=== PATIENT | female | born 1995 | race Hispanic/Latino ===

== ENCOUNTER 2021-12-15 10:23 | Emergency (ER) | payer SELFPAY ==
--- OUTSIDE RECORDS SUMMARY | 2021-12-15 10:27 | XMS REPORT | Continuity of Care Document ---
:1995 Author Organization [facility] Address [address] [place] [address] Care Team Providers Name Role Phone ZO ESTRADA Attending Clinician Unavailable Laura Holbrook Attending Clinician Doctor Unassigned, Name Attending Clinician Unavailable Payers Payer Name Policy Type Policy Number Effective Date Expiration Date Steve woodruff [employer] [id number] 2020 CATHY [phone]% 00:00:00 Advance Directives Directive Decision Effective Termination Comments Source Date Date Healthcare Agents on N/A Univ ersity FileNameRelationshipHealthcare [facility] Agent Medical RelationshipCommunicationMaicreni Branch PatlanParentHealth Care [phone] (Home)[facility] Partner[facility] [phone] (Mobile) Problems Condition Condition Condition Status Onset Resolution Last Treating Co mments Source Name Details Category Date Date Treatment Clinician Date BV BV Disease Active Univers (bacterial (bacterial 2-26 it y of vaginosis) [place]in[place] [facility] Pain Pain Disease Active Univers pelvic pelvic 1-24 ity of 00:00: [place] 00 Medical Branch Presence Presence Disease Active Unive rs of of 1-24 ity of intrauteri intrauteri [place] Medical contracept contracept Br anch jessica device jessica device Encounter Encounter Disease Active 2016-11 Uni vers for for 2-19 ity of contracept contracept [place] jessica jessica 00 Medical management management Br anch , , unspecifie unspecifie d type d type Allergies, Adverse Reactions, Alerts Allergy Allergy Status Severity Reaction(s) Onset Inactive Treating Comm ents Source Name Type Date Date Clinician NO KNOWN Drug Active Univers ALLERGIE Class ity of S [place] [facility] Social History Social Habit Start Date Stop Date Quantity Comments Source Exposure to Not sure [facility] SARS-CoV-2 [place] Medical (event) Branch Tobacco use and 2020-07-09 2020-07-09 Never used Universit y of exposure 00:00:00 00:00:00 [facility] Alcohol intake 2020-07-09 2020-07-09 Current University of 00:00:00 00:00:00 non-drinker of [facility] alcohol Branch (finding) Sex Ass[birth year] At [birth year] Universit y of 00:00:00 00:00:00 [facility] Smoking Status Start Date Stop Date Source Never smoker [facility] Medications Ordered Filled Start Stop Current Ordering Indication Dosage Frequency Signature Comments Components Source Medication Medication Date Date Medication? Clinician (SIG) Name Name metroNIDAZO 2019- Yes [id number] 500mg Take 1 Univers LE 500 mg 8-11 tablet by ity o f tablet 00:00: mouth 2 [place] ([facility]) Medical times Branch daily. metroNIDAZO 2019-0 Yes [id number] 500mg Take 1 Univers LE 500 mg 8-11 tablet by ity o f tablet 00:00: mouth 2 [place] (two) Medical times Branch daily. metroNIDAZO 2019-0 Yes [id number] 500mg Take 1 Univers LE 500 mg 8-11 tablet by ity o f tablet 00:00: mouth 2 [place] (two) Medical times Branch daily. metroNIDAZO 2019-0 Yes [id number] 500mg Take 1 Univers LE 500 mg 8-11 tablet by ity o f tablet 00:00: mouth 2 [place] (two) Medical times Branch daily. metroNIDAZO 2019-0 Yes [id number] 500mg Take 1 Univers LE 500 mg 8-11 tablet by ity o f tablet 00:00: mouth 2 [place] (two) Medical times Branch daily. metroNIDAZO 2019-0 Yes [id number] 500mg Take 1 Univers LE 500 mg 8-11 tablet by ity o f tablet 00:00: mouth 2 [place] (two) Medical times Branch daily. metroNIDAZO 2017-0 Yes [id number] 500mg Take 1 Univers LE 500 mg 2-26 tablet by ity o f tablet 00:00: mouth 2 [place] (two) Medical times Branch daily. metroNIDAZO 2017-0 Yes [id number] 500mg Take 1 Univers LE 500 mg 2-26 tablet by ity o f tablet 00:00: mouth 2 [place] 00 (two) Medical times Branch daily. metroNIDAZO 2017-0 Yes [id number] 500mg Take 1 Univers LE 500 mg 2-26 tablet by ity o f tablet 00:00: mouth 2 [place] 00 (two) Medical times Branch daily. metroNIDAZO 2017- Yes [id number] 500mg Take 1 Univers LE 500 mg 2-26 tablet by ity o f tablet 00:00: mouth 2 [place] 00 (two) Medical times Branch daily. metroNIDAZO Yes [id number] 500mg Take 1 Univers LE 500 mg 2-26 tablet by ity o f tablet 00:00: mouth 2 00 (two) Medical times Branch daily. metroNIDAZO Yes [id number] 500mg Take 1 Univers LE 500 mg 2-26 tablet by ity o f tablet 00:00: mouth 2 00 (two) Medical times Branch daily. metroNIDAZO Yes [id number] 500mg Take 1 Univers LE 500 mg 2-26 tablet by ity o f tablet 00:00: mouth 2 00 (two) Medical times Branch daily. metroNIDAZO Yes [id number] 500mg Take 1 Univers LE 500 mg 2-26 tablet by ity o f tablet 00:00: mouth 2 [place] 00 (two) Medical times Branch daily. metroNIDAZO 0 Yes [id number] 500mg Take 1 Univers LE 500 mg 2-26 tablet by ity o f tablet 00:00: mouth 2 00 (two) Medical times Branch daily. 2017- Yes 1{tbl} Take 1 Unive rs vitamin 1-07 tablet by ity of w/FA tablet 00:00: mouth [place] 00 daily. Medical Branch 2017- Yes 1{tbl} Take 1 Unive rs vitamin 1-07 tablet by ity of w/FA tablet 00:00: mouth [place] 00 daily. Medical Branch 2016- Yes 1{tbl} Take 1 Unive rs vitamin 1-07 tablet by ity of w/FA tablet 00:00: mouth [place] 00 daily. Medical Branch 2016- Yes 1{tbl} Take 1 Unive rs vitamin 1-07 tablet by ity of w/FA tablet 00:00: mouth [place] 00 daily. Medical Branch 2016-11 Yes 1{tbl} Take 1 Unive rs vitamin 1-07 tablet by ity of w/FA tablet 00:00: mouth [place] 00 daily. Medical Branch 2016-11 Yes 1{tbl} Take 1 Unive rs vitamin 1-07 tablet by ity of w/FA tablet 00:00: mouth [place] 00 daily. Medical Branch 2016-11 Yes 1{tbl} Take 1 Unive rs vitamin 1-07 tablet by ity of w/FA tablet 00:00: mouth [place] 00 daily. Medical Branch 2016-11 Yes 1{tbl} Take 1 Unive rs vitamin 1-07 tablet by ity of w/FA tablet 00:00: mouth [place] 00 daily. Medical Branch 2016-11 Yes 1{tbl} Take 1 Unive rs vitamin 1-07 tablet by ity of w/FA tablet 00:00: mouth [place] 00 daily. Medical Branch Immunizations Ordered Filled Immunization Date Status Comments [facility] e Immunization Name Name HPV9 2018-04-14 Completed University of 00:00:00 [facility] HPV9 2018-04-14 Completed University of 00:00:00 [facility] HPV9 2018-04-14 Completed University of 00:00:00 [facility] HPV9 2018-04-14 Completed University of 00:00:00 [facility] HPV9 2018-04-14 Completed University of 00:00:00 [facility] HPV9 2018-04-14 Completed University of 00:00:00 [facility] HPV9 2018-04-14 Completed University of 00:00:00 [facility] HPV9 2018-04-14 Completed University of 00:00:00 [facility] HPV9 2018-04-14 Completed University of 00:00:00 [facility] HPV9 2017-11-08 Completed University of 00:00:00 [facility] HPV9 2017-11-08 Completed University of 00:00:00 [facility] HPV9 2017-11-08 Completed University of 00:00:00 [facility] Branch HPV9 2017-11-08 Completed University of 00:00:00 [facility] HPV9 2017-11-08 Completed University of 00:00:00 [facility] HPV9 2017-11-08 Completed University of 00:00:00 [facility] HPV9 2017-11-08 Completed University of 00:00:00 [facility] HPV9 2017-11-08 Completed University of 00:00:00 [facility] HPV9 2017-11-08 Completed University of 00:00:00 [facility] HPV9 2017-10-04 Completed University of 00:00:00 [facility] HPV9 2017-10-04 Completed University of 00:00:00 [facility] HPV9 2017-10-04 Completed University of 00:00:00 [facility] HPV9 2017-10-04 Completed University of 00:00:00 [facility] HPV9 2017-10-04 Completed University of 00:00:00 [facility] HPV9 2017-10-04 Completed University of 00:00:00 [facility] HPV9 2017-10-04 Completed University of 00:00:00 [facility] HPV9 2017-10-04 Completed University of 00:00:00 [facility] HPV9 2017-10-04 Completed University of 00:00:00 [facility] Influenza Virus 2017-09-02 Completed Universit y of Vaccine Quad IM 3+ 00:00:00 [facility] Influenza Virus 2017-09-02 Completed Universit y of Vaccine Quad IM 3+ 00:00:00 [facility] Influenza Virus 2017-09-02 Completed Universit y of Vaccine Quad IM 3+ 00:00:00 [facility] Influenza Virus 2017-09-02 Completed Universit y of Vaccine Quad IM 3+ 00:00:00 [facility] Influenza Virus 2017-09-02 Completed Universit y of Vaccine Quad IM 3+ 00:00:00 [facility] Influenza Virus 2017-09-02 Completed Universit y of Vaccine Quad IM 3+ 00:00:00 [facility] Influenza Virus 2017-09-02 Completed Universit y of Vaccine Quad IM 3+ 00:00:00 [facility] Influenza Virus 2017-09-02 Completed Universit y of Vaccine Quad IM 3+ 00:00:00 [facility] Influenza Virus 2017-09-02 Completed Universit y of Vaccine Quad IM 3+ 00:00:00 [facility] TDAP 2017-07-13 Completed University of 00:00:00 [facility] TDAP 2017-07-13 Completed University of 00:00:00 [facility] TDAP 2017-07-13 Completed University of 00:00:00 [facility] TDAP 2017-07-13 Completed University of 00:00:00 [facility] TDAP 2017-07-13 Completed University of 00:00:00 [facility] TDAP 2017-07-13 Completed University of 00:00:00 [facility] TDAP 2017-07-13 Completed University of 00:00:00 [facility] TDAP 2017-07-13 Completed University of 00:00:00 [facility] TDAP 2017-07-13 Completed University of 00:00:00 [facility] PPD (TB) 2017-02-23 Completed University of 00:00:00 [facility] PPD (TB) 2017-02-23 Completed University of 00:00:00 [facility] PPD (TB) 2017-02-23 Completed University of 00:00:00 [facility] PPD (TB) 2017-02-23 Completed University of 00:00:00 [facility] PPD (TB) 2017-02-23 Completed University of 00:00:00 [facility] PPD (TB) 2017-02-23 Completed University of 00:00:00 [facility] PPD (TB) 2017-02-23 Completed University of 00:00:00 [facility] PPD (TB) 2017-02-23 Completed University of 00:00:00 [facility] PPD (TB) 2017-02-23 Completed University of 00:00:00 [facility] Vital Signs Vital Name Observation Time Observation Value Comments Source Systolic blood 2020-07-09 17:54:00 85 mm[Hg] Univer sity of pressure [facility] Diastolic blood 2020-07-09 17:54:00 53 mm[Hg] Unive rsity of pressure [facility] Heart rate 2020-07-09 17:54:00 75 /min [facility] Body temperature 2020-07-09 17:54:00 36.22 [facility] 2020-07-09 17:54:00 16 /[facility] Body height 2020-07-09 17:54:00 154.9 cm [facility] Body weight 2020-07-09 17:54:00 52.702 kg [facility] BMI 2020-07-09 17:54:00 21.95 kg/m2 [facility] Systolic blood 2020-07-02 20:36:00 91 mm[Hg] Univer sity of [facility] Diastolic blood 2020-07-02 20:36:00 63 mm[Hg] Unive rsity of [facility] Heart rate 2020-07-02 20:36:00 62 /min [facility] Body temperature 2020-07-02 20:36:[address] [facility] Respiratory rate 2020-07-02 20:36:00 16 /min [facility] height 2020-07-02 20:36:00 154.9 cm [facility] Body weight 2020-07-02 20:36:00 52.249 kg [facility] BMI 2020-07-02 20:36:00 21.76 kg/m2 [facility] Procedures Procedure Date / Time Performed Performing Clinician Wilma e POCT TEST 2020-07-02 21:01:00 Zo Estrada [facility] ASSIGNMENT OF BENEFITS 2020-07-02 20:11:15 Doctor Unassigned, No [facility] Encounters Start End Encounter Admission Attending Care Care Encounter Source Date/Time Date/Time Type Type Clinicians Facility Department ID 2021-07-30 2021-07-30 Outpatient [facility] [id number] Univers 14:15:00 14:15:00 [id number] [facility] 2021-07-30 2021-07-30 Outpatient [facility] [id number] Univers 14:15:00 14:15:00 [facility] 2021-05-08 2021-05-08 Outpatient R [facility] [id number] Univers 15:30:00 15:30:00 ZO [id number] ity o f [facility] 2021-05-08 2021-05-08 Outpatient R [facility] [id number] Univers 15:30:00 15:30:00 ZO itjeannette o f [facility] 2021-05-08 2021-05-08 Outpatient [facility] [id number] Univers 15:00:00 15:00:00 [facility] 2021-05-05 2021-05-05 Telephone RASHAWN Estrada [id number] Univers 00:00:00 00:00:00 Zo C [employer] SUPERVIS[employer] [id number] ity of [facility] [id number] [place] as MATERNAL [phone] [facility] & [address] 2020-07-10 2020-07-10 Outpatient R [place], [facility] [id number] Univers 10:30:00 10:30:00 ZO [id number] ity o [facility] 2020-07-10 2020-07-10 Outpatient R [place], [facility] [id number] Univers 10:30:00 [facility]30:[facility] 2020-07-09 [facility] [id number] Univers 12:45:59 16:27:35 Visit [facility] C [employer]UMBL[employer] SUPERVISOR [id number] ity of [facility] [id number] [place] as MATERNAL [id number] [address] 2020-07-09 2020-07-09 Outpatient R [place], [facility] [id number] Univers 12:45:00 12:45:00 ZO [id number] ity o [facility] 2020-07-09 2020-07-09 Outpatient R [place], [facility] [id number] Univers 12:45:00 12:45:00 [facility] 2020-07-02 2020-07-02 [facility] [id number] Univers 15:23:06 16:10:26 Visit [facility] TUMBL[employer] SUPERVISOR [id number] ity of [facility] [id number] [place] as MATERNAL [id number] [facility] & [address] 2020-07-02 2020-07-02 Outpatient [facility] [id number] Univers 15:00:00 15:00:00 [id number] ity [facility] 2020-07-02 2020-07-02 Outpatient R [facility] [id number] Univers 15:00:00 15:00:00 ity of [facility] 2020-07-02 2020-07-02 Orders Doctor PAULA [id number] Univers 00:00:00 00:00:00 Only Unassigned, GAVINO [id number] ity of [place] [facility] [id number] [place] as [phone] [address] Results Test Description Test Time Test Comments Results Result Comments Source POCT TEST 2020-07-02 21:04:00 Test Item Value Reference Range Interpretation Comme nts POCT PREG (test code = 1605) Negative On board controls acceptable with C Line (test code = 3574) Yes POCT PREG LOT # (test code = 3575) POCT PREG TEST DATE (test code = 3576) [id number] 21:04:00 Test Item Value Reference Range Interpretation Comments POCT PREG (test code = 1605) Negative On board controls acceptable with C Yes Line (test code = 3574) POCT PREG LOT # (test code = 3575) POCT PREG TEST DATE (test code = 3576) [facility]
[2021-12-15] MEDS ORDERED: ONDANSETRON 4 MG (ODT) TAB ONE (10:53)
[2021-12-15] MEDS ORDERED: MORPHINE 4 MG/ML SYR ONE ×2 (12:08→13:02)
[2021-12-15] MEDS ORDERED: NA CHLORIDE 0.9% 1,000 ML ONE (12:08)
[2021-12-15] MEDS ORDERED: ONDANSETRON 4 MG/2 ML VIAL ONE (12:08)
[2021-12-15 12:21] LABS: Urine Blood Negative (Negative); Urine Glucose Negative (Negative); Urine Protein Negative (Negative); Urine Specific Gravity 1.025 (1.005-1.030); Urine pH 7.5 (5.0-7.0)
[2021-12-15 12:41] LABS: Urine Specific Gravity/Preg 1.025 (1.005-1.030)
[2021-12-15 12:42] LABS: Hematocrit 39.3 % (36.0-45.0); Lymphocytes % 6.8 % (15.3-44.8); MPV 9.5 fL (7.6-11.3); RBC Red Blood Cell Count 4.27 M/uL (3.86-4.86)
[2021-12-15 12:45] LABS: ALT/SGPT 23 U/L (12-78); AST/SGOT 18 U/L (15-37); Albumin 3.9 g/dL (3.4-5.0); Alkaline Phosphatase 54 U/L (45-117); BUN Blood Urea Nitrogen 12 mg/dL (7-18); Bicarbonate 23 mmol/L (21-32); Bilirubin Direct < 0.1 mg/dL (0-0.2); Bilirubin Total 0.3 mg/dL (0.2-1.0); Glucose Level 109 mg/dL (74-106); Lipase 80 U/L (73-393); Potassium 3.6 mmol/L (3.5-5.1); Protein, Total 8.1 g/dL (6.4-8.2); Sodium Level 138 mmol/L (136-145)
[2021-12-15 13:05] LABS: Blood Morphology Comment NOT SEEN (NOT SEEN); Platelet Estimate ADEQ
--- NOTE | 2021-12-15 13:30 | RAD REPORT ---
EXAM DESCRIPTION: CTAbdomen Pelvis W Contrast - 12/15/2021 1:20 pm CLINICAL HISTORY: ABD PAIN COMPARISON: No comparisons TECHNIQUE: CT of the abdomen and pelvis was performed. All CT scans are performed using dose optimization technique as appropriate and may include automated exposure control or mA/KV adjustment according to patient size. FINDINGS: Lower chest: No acute abnormality. Liver: No acute abnormality or suspicious lesions. Biliary: No biliary ductal dilatation. Stomach: No significant focal abnormality. Duodenum: No significant focal abnormality. Pancreas: No significant abnormality. Spleen: No significant abnormality. Adrenal: No suspicious lesions. Kidney/ureter: No hydronephrosis. No renal calculi. Retroperitoneum: No retroperitoneal adenopathy. Vascular: No aneurysm. Bowel: No significant focal abnormality. Moderate stool in the proximal colon. Normal appendix. Peritoneum: Small volume of pelvic free fluid. Bladder: Grossly unremarkable. Reproductive: IUD. Fat containing pelvic mass measuring 9 cm by 5.2 cm has a small focus of calcifica tion. This likely arises from the right ovary. Presumably physiologic cyst in the left ovary. Bones: No acute fracture. Other: n/a IMPRESSION: Fat and calcium containing pelvic mass probably arising from the right ovary and consist ent with an ovarian dermoid. Recommend gynecologic referral/consultation. Normal appendix.
[2021-12-15] MEDS ORDERED: KETOROLAC 30 MG/ML INJ ONE (13:46)
[2021-12-15 13:51] LABS: SARS-COV-2 RT PCR NEGATIVE (NEGATIVE)
[2021-12-15 14:01] LABS: Urine Bacteria <20 /HPF (<20); Urine Mucus 1+ /HPF (NONE SEEN); Urine RBC <5 /HPF (NONE SEEN)
--- NOTE | 2021-12-15 15:56 | RAD REPORT ---
EXAM DESCRIPTION: US - Pelvis Complete - 12/15/2021 3:28 pm CLINICAL HISTORY: abdmoninal pain, dermoid cyst COMPARISON: Abdomen Pelvis W Contrast dated 12/15/2021 TECHNIQUE: Transabdominal pelvic sonography was performed. FINDINGS: Uterus is approximately 10 x 5 x 5.4 cm. No myometrial mass is identifiable. IUD is in joe ce in the fundal and midportion of the uterus. No suspicious endometrial finding. Normal size left ovary is seen low in the pelvis and contains a 2.4 centimeter anechoic cyst. In the midline pelvis superior to the bladder and anterior to the uterine fundus, there is an 8.2 centimeter oval shaped mass. This is primarily cystic but does contain peripheral fatty component as well as a thick septation through the mass. This is the correlate to the CT finding with dermoid the most likel y etiology. Right ovary origin is still suspected. A normal right ovary was not identifiable. No blood or fluid in the cul de sac. IMPRESSION: Approximately 8 centimeter cystic mass containing fat component and thickened septation in the midline anterior pelvis superior to the bladder. This is the correlate to the CT finding with right ovarian dermoid remaining the most likely etiology.
--- NOTE | 2021-12-15 16:16 | ER ---
Nurse's Notes [facility] Name: Katina Lindsay Age: 26 yrs Sex: Female : 1995 Arrival Date: 12/15/2021 Time: 10:27 Bed 10 Private MD: Diagnosis: Other ovarian cyst, right side-dermoid Presentation: 12/15 10:42 Chief complaint: Patient states: Lower ABD pain that began this morning; states 'hurts vg1 more on the right side', with vomiting; states has vomited 5 times and the last time vomit 'there was blood in it'. Coronavirus screen: Vaccine status: Patient reports being unvaccinated. Client denies travel out of the [place] in the last 14 days. Ebola Screen: Patient negative for fever greater than or equal to 101.5 degrees Fahrenheit, and additional compatible Ebola Virus Disease symptoms. Initial Sepsis Screen: Does the patient meet any 2 criteria? No. Patient's initial sepsis screen is negative. Does the patient have a suspected source of infection? No. Patient's initial sepsis screen is negative. Risk Assessment: Do you want to hurt yourself or someone else? Patient reports no desire to harm self or others. Onset of symptoms was December 15, 2021. 10:42 Method Of Arrival: Ambulatory vg1 10:42 Acuity: JOEY 3 vg1 Triage Assessment: 10:46 General: Appears in no apparent distress. uncomfortable, Behavior is calm, cooperative. vg1 Pain: Complains of pain in right lower quadrant and left lower quadrant Pain currently is 9 out of 10 on a pain scale. GI: Abdomen is flat, non-distended, Pt is actively vomiting. MANAGER KNOWLEDGE: 10:46 LMP 12/01/2021 vg1 Historical: - Allergies: 10:44 No Known Allergies; vg1 - Home Meds: 10:44 None [Active]; vg1 - PMHx: 10:46 None; vg1 - PSHx: 10:46 section; vg1 - Immunization history:: Client reports having NOT received the Covid vaccine. - Social history:: Smoking status: Patient denies any tobacco usage or history of. Screenin:23 Abuse screen: Denies threats or abuse. Denies injuries from another. Nutritional ld1 screening: No deficits noted. Tuberculosis screening: No symptoms or risk factors identified. Fall Risk None identified. Assessment: 12:23 General: Appears in no apparent distress. uncomfortable, Behavior is cooperative, ld1 appropriate for age, anxious. Pain: Complains of pain in suprapubic area, right lower quadrant and left lower quadrant Pain does not radiate. Pain currently is 9 out of 10 on a pain scale. Quality of pain is described as sharp, stabbing, throbbing, Pain began gradually, Is continuous. Neuro: Level of Consciousness is awake, alert, obeys commands, Oriented to person, place, time, situation. Cardiovascular: Capillary refill < 3 seconds Patient's skin is warm and dry. Respiratory: Airway is patent Respiratory effort is even, unlabored, Respiratory pattern is regular, symmetrical. GI: Abdomen is flat, non-distended, Bowel sounds present X 4 quads. Abd is soft Abdomen is tender to palpation X 4 quads. : No signs and/or symptoms were reported regarding the genitourinary system. EENT: No signs and/or symptoms were reported regarding the EENT system. Derm: No signs and/or symptoms reported regarding the dermatologic system. Musculoskeletal: No signs and/or symptoms reported regarding the musculoskeletal system. 14:22 Reassessment: Patient appears in no apparent distress at this time. Patient and/or ld1 family updated on plan of care and expected duration. Pain level reassessed. Patient is alert, oriented x 3, equal unlabored respirations, skin warm/dry/pink. Vital Signs: 10:42 BP 104 / 64; Pulse 84; Resp 16; Temp 97.6; Pulse Ox 100% ; Weight 52.16 kg; Pain 9/10; vg1 12:23 BP 107 / 70; Pulse 89; Resp 18; Pulse Ox 100% on R/A; ld1 13:42 BP 104 / 56; Pulse 91; Resp 18; Pulse Ox 99% on R/A; Pain 7/10; ld1 14:22 BP 106 / 92; Pulse 89; Resp 17; Pulse Ox 100% on R/A; ld1 ED Course: 10:27 Patient arrived in ED. ja2 10:44 Triage completed. vg1 10:46 Jn Junior NP is PHCP. pm1 10:46 Cecilio Garcia MD is Attending Physician. pm1 10:46 Arm band placed on. vg1 12:22 COVID-19/FLU A+B (Document "Date of Onset" if Symptomatic) Sent. ld1 12:23 Shea Troy, RN is Primary Nurse. ld1 12:23 Patient has correct armband on for positive identification. Placed in gown. Bed in low ld1 position. Call light in reach. Side rails up X2. telemetry monitor on. Pulse ox on. NIBP on. Door closed. Noise minimized. Warm blanket given. 12:23 No provider procedures requiring assistance completed. Inserted saline lock: 20 gauge ld1 in right antecubital area, using aseptic technique. Blood collected. 13:04 COVID-19/FLU A+B (Document "Date of Onset" if Symptomatic) Sent. ld1 13:20 CT Abd/Pelvis - IV Contrast Only In Process Unspecified. EDMS 13:46 Urine Microscopic Only Sent. ld1 15:28 Pelvis Complete In Process Unspecified. EDMS 16:16 Reema Nichols MD is Referral Physician. pm1 16:58 IV discontinued, intact, bleeding controlled, No redness/swelling at site. ld1 Administered Medications: 10:53 Drug: Ondansetron 4 mg Route: PO; vg1 13:04 Follow up: Response: No adverse reaction ld1 12:22 Drug: Zofran (Ondansetron) 4 mg Route: IVP; Site: right antecubital; ld1 13:05 Follow up: Response: No adverse reaction ld1 12:22 Drug: NS 0.9% 1000 ml Route: IV; Rate: 1000 ml; Site: right antecubital; ld1 13:04 Follow up: Response: No adverse reaction; IV Status: Completed infusion; IV Intake: ld1 1000ml 12:22 Drug: morphine 4 mg Route: IVP; Site: right antecubital; ld1 13:04 Follow up: Response: No adverse reaction ld1 13:04 Drug: morphine 4 mg Route: IVP; Site: right antecubital; ld1 13:04 Follow up: Response: No adverse reaction ld1 13:47 Drug: Ketorolac 30 mg Route: IVP; Site: right antecubital; ld1 13:47 Follow up: Response: No adverse reaction ld1 Intake: 13:04 IV: 1000ml; Total: 1000ml. ld1 Outcome: 16:15 Discharge ordered by . pm1 16:58 Discharged to home ambulatory. ld1 16:58 Condition: stable 16:58 Discharge instructions given to patient, family, Instructed on discharge instructions, follow up and referral plans. medication usage, Demonstrated understanding of instructions, follow-up care, medications, Prescriptions given X 1. 16:58 Patient left the ED. ld1 Signatures: Dispatcher [employer] EDAL Jn Junior NP PALLIATIVE CARE PHYSICIAN pm1 Gisele Becerra RN RN vg1 Shea Troy RN RN ld1 Michelle Katz
--- NOTE | 2021-12-15 16:16 | EDPHYS ---
Physician Documentation [facility] Name: Katina Lindsay Age: 26 yrs Sex: Female : 1995 Arrival Date: 12/15/2021 Time: 10:27 Bed 10 Private MD: ED Physician Cecilio Garcia HPI: 12/15 10:48 This 26 yrs old Female presents to ER via Ambulatory with complaints of pm1 Abdominal Pain, Vomiting. 10:48 The patient presents with abdominal pain right lower quadrant. Onset: The pm1 symptoms/episode began/occurred this morning. The symptoms do not radiate. Associated signs and symptoms: Pertinent positives: nausea and vomiting, Pertinent negatives: diarrhea, dysuria, fever. The symptoms are described as sharp. Modifying factors: The symptoms are alleviated by nothing, the symptoms are aggravated by nothing. Severity of pain: in the emergency department the pain is actually worse. The patient has experienced a previous episode, a few months ago and diagnosed with menstrual cramping. The patient has not recently seen a physician. 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 - Social history:: Smoking status: Patient denies any tobacco usage or history of. ROS: 10:48 Constitutional: Negative for fever, chills, and weight loss, Cardiovascular: Negative pm1 for chest pain, palpitations, and edema, Respiratory: Negative for shortness of breath, cough, wheezing, and pleuritic chest pain. 10:48 Back: Negative for injury and pain. 10:48 : Negative for injury, bleeding, discharge, and swelling, MS/Extremity: Negative for injury and deformity, Skin: Negative for injury, rash, and discoloration, Neuro: Negative for headache, weakness, numbness, tingling, and seizure. 10:48 Abdomen/GI: Positive for abdominal pain, nausea and vomiting, Negative for diarrhea, constipation. 10:48 All other systems are negative. Exam: 10:48 Constitutional: This is a well developed, well nourished patient who is awake, alert, pm1 and in no acute distress. Head/Face: Normocephalic, atraumatic. 10:48 Back: No spinal tenderness. No costovertebral tenderness. Full range of motion. Skin: Warm, dry with normal turgor. Normal color with no rashes, no lesions, and no evidence of cellulitis. MS/ Extremity: Pulses equal, no cyanosis. Neurovascular intact. Full, normal range of motion. 10:48 Cardiovascular: Exam negative for acute changes, Rate: normal, Rhythm: regular, Pulses: no pulse deficits are appreciated, Heart sounds: normal. 10:48 Respiratory: Exam negative for acute changes, respiratory distress, shortness of breath, Breath sounds: are clear throughout. 10:48 Abdomen/GI: Inspection: abdomen appears normal, Palpation: soft, in all quadrants, moderate abdominal tenderness, in the suprapubic area. 10:48 Neuro: Exam negative for acute changes, Orientation: is normal, Mentation: is normal, Motor: is normal, moves all fours. Vital Signs: 10:42 BP 104 / 64; Pulse 84; Resp 16; Temp 97.6; Pulse Ox 100% ; Weight 52.16 kg; Pain 9/10; vg1 12:23 BP 107 / 70; Pulse 89; Resp 18; Pulse Ox 100% on R/A; ld1 13:42 BP 104 / 56; Pulse 91; Resp 18; Pulse Ox 99% on R/A; Pain 7/10; ld1 14:22 BP 106 / 92; Pulse 89; Resp 17; Pulse Ox 100% on R/A; ld1 MDM: 11:17 Patient medically screened. pm1 14:46 ED course: Patient's pain relieved after Toradol given. pm1 14:49 Differential diagnosis: appendicitis, non-specific abd pain, Ovarian Torsion, pm1 Pyelonephritis, urinary tract infection, cystitis, ovarian cyst. 16:14 Data reviewed: vital signs. Data interpreted: Pulse oximetry: on room air is 100 %. pm1 Interpretation: normal. 16:14 Counseling: I had a detailed discussion with the patient and/or guardian regarding: the pm1 historical points, exam findings, and any diagnostic results supporting the discharge/admit diagnosis, lab results, radiology results, the need for outpatient follow up, an OB/Gyne specialist, to return to the emergency department if symptoms worsen or persist or if there are any questions or concerns that arise at home. 12/15 10:47 Order name: Basic Metabolic Panel pm1 12/15 10:47 Order name: CBC with Diff pm1 12/15 10:47 Order name: Hepatic Function; Complete Time: 12:46 pm1 12/15 10:47 Order name: Lipase; Complete Time: 12:46 pm1 12/15 10:47 Order name: Basic Metabolic Panel; Complete Time: 12:46 EDMS 12/15 10:48 Order name: COVID-19/FLU A+B (Document "Date of Onset" if Symptomatic); Complete Time: pm1 14:09 12/15 10:47 Order name: CT Abd/Pelvis - IV Contrast Only; Complete Time: 13:38 pm1 12/15 12:20 Order name: Urine --Ancillary (enter results); Complete Time: 12:45 bd 12/15 12:21 Order name: Urine Dipstick-Ancillary; Complete Time: 12:45 EDMS 12/15 13:05 Order name: Manual Differential; Complete Time: 13:38 EDMS 12/15 13:39 Order name: Urine Microscopic Only; Complete Time: 14:09 pm1 12/15 15:28 Order name: Pelvis Complete; Complete Time: 16:02 EDMS 12/15 10:47 Order name: IV Saline Lock; Complete Time: 12:22 pm1 12/15 10:47 Order name: Labs collected and sent; Complete Time: 12:23 pm1 12/15 10:47 Order name: Urine Dipstick-Ancillary (obtain specimen); Complete Time: 12:22 pm1 12/15 10:47 Order name: Urine Test (obtain specimen); Complete Time: 12:22 pm1 Administered Medications: 10:53 Drug: Ondansetron 4 mg Route: PO; vg1 13:04 Follow up: Response: No adverse reaction ld1 12:22 Drug: Zofran (Ondansetron) 4 mg Route: IVP; Site: right antecubital; ld1 13:05 Follow up: Response: No adverse reaction ld1 12:22 Drug: NS 0.9% 1000 ml Route: IV; Rate: 1000 ml; Site: right antecubital; ld1 13:04 Follow up: Response: No adverse reaction; IV Status: Completed infusion; IV Intake: ld1 1000ml 12:22 Drug: morphine 4 mg Route: IVP; Site: right antecubital; ld1 13:04 Follow up: Response: No adverse reaction ld1 13:04 Drug: morphine 4 mg Route: IVP; Site: right antecubital; ld1 13:04 Follow up: Response: No adverse reaction ld1 13:47 Drug: Ketorolac 30 mg Route: IVP; Site: right antecubital; ld1 13:47 Follow up: Response: No adverse reaction ld1 Disposition: 12/16 07:47 Co-signature as Attending Physician, Cecilio Garcia MD I agree with the assessment and karen plan of care. Disposition Summary: 12/15/21 16:15 Discharge Ordered Location: Home pm1 Problem: new pm1 Symptoms: have improved pm1 Condition: Stable pm1 Diagnosis - Other ovarian cyst, right side - dermoid pm1 Followup: pm1 - With: Emergency Department - When: As needed - Reason: Worsening of condition Followup: pm1 - With: Private Physician - When: 2 - 3 days - Reason: Recheck today's complaints, Continuance of care, Re-evaluation by your physician Followup: pm1 - With: Reema Nichols MD - When: 2 - 3 days - Reason: Recheck today's complaints, Continuance of care, Re-evaluation by your physician Discharge Instructions: - Discharge Summary Sheet pm1 - Ovarian Cyst pm1 Forms: - Medication Reconciliation Form pm1 - Thank You Letter pm1 - Antibiotic Education pm1 - Prescription Opioid Use pm1 Prescriptions: - Diclofenac Sodium 75 mg Oral tablet,delayed release (DR/EC) - take 1 tablet by ORAL route 2 times per day As needed; 30 tablet; Refills: 0, pm1 Product Selection Permitted - ondansetron 4 mg Oral tablet,disintegrating - place 1 tablet by TRANSLINGUAL route every 8 hours As needed; 10 tablet; pm1 Refills: 0, Product Selection Permitted Signatures: Dispatcher [employer] EDCecilio Birch MD MD cha Marinas, Patrick, NP TUBE CARRIER pm1 Gisele Becerra RN RN vg1 Shea Troy RN RN ld1 Corrections: (The following items were deleted from the chart) 12/15 15:28 14:45 Transvaginal Study Probe ordered. EDWY EDMS
[2021-12-15 17:07] VITALS: TEMP 97.6
[2021-12-15 17:11] VITALS: BP 106/92; O2SAT 100
== END 2021-12-15 16:58 | disposition home or self-care (01) ==
LOC: ER 10:23
DX: D27.0 Benign neoplasm of right ovary (principal); Z20.822 Contact with and (suspected) exposure to COVID-19
CPT/HCPCS: 0240U; 36415; 74177; 76856; 80048; 80076; 81003; 81015; 81025; 83690; 85025; 96361; 96374; 96375; 99284; J2405; J7030; Q9967

== ENCOUNTER 2022-06-16 20:35 | Emergency (ER) | payer SELFPAY ==
[2022-06-16 21:15] LABS: Urine Blood 2+ (Negative); Urine Glucose Negative (Negative); Urine Protein Negative (Negative); Urine pH 8.5 (5.0-7.0)
[2022-06-16 21:32] LABS: Urine Bacteria 20-50 /HPF (<20)
[2022-06-16] MEDS ORDERED: MORPHINE 2 MG/ML SYR ONE (22:02)
[2022-06-16] MEDS ORDERED: NA CHLORIDE 0.9% 1,000 ML ONE (22:02)
[2022-06-16] MEDS ORDERED: ONDANSETRON 4 MG/2 ML VIAL ONE (22:13)
[2022-06-16 22:34] LABS: Albumin 4.5 g/dL (3.4-5.0); Bilirubin Total 0.4 mg/dL (0.2-1.0); Potassium 3.7 mmol/L (3.5-5.1); Protein, Total 8.2 g/dL (6.4-8.2)
[2022-06-16] MEDS ORDERED: KETOROLAC 30 MG/ML INJ ONE (22:42)
[2022-06-16 22:47] LABS: Absolute Lymphocytes (CBC) 0.6 K/uL (0.7-4.9); Hematocrit 40.4 % (36.0-45.0); Lymphocytes % 5.3 % (15.3-44.8); MCV 90.7 fL (80-100); MPV 9.7 fL (7.6-11.3); RBC Red Blood Cell Count 4.46 M/uL (3.86-4.86)
[2022-06-17 00:18] LABS: Blood Morphology Comment NOT SEEN (NOT SEEN); Platelet Estimate ADEQ
--- NOTE | 2022-06-17 02:05 | ER ---
Nurse's Notes [facility] Name: Katina Lindsay Age: 27 yrs Sex: Female : 1995 Arrival Date: 06/16/2022 Time: 20:39 Bed 16 Private MD: Diagnosis: Other ovarian cysts-dermoid Presentation: 06/16 20:48 Chief complaint: RLQ pain and vomiting x 4 hours. Coronavirus screen: At this time, the client does not indicate any symptoms associated with coronavirus-19. Ebola Screen: No symptoms or risks identified at this time. Initial Sepsis Screen: Does the patient meet any 2 criteria? No. Patient's initial sepsis screen is negative. Does the patient have a suspected source of infection? No. Patient's initial sepsis screen is negative. Risk Assessment: Do you want to hurt yourself or someone else? Patient reports no desire to harm self or others. Onset of symptoms was June 16, 2022. 20:48 Method Of Arrival: Ambulatory 20:48 Acuity: JOEY 3 Triage Assessment: 21:19 General: Appears in no apparent distress. uncomfortable, Behavior is calm, cooperative, eh3 appropriate for age. 21:20 Pain: Complains of pain in right lower quadrant Pain currently is 6 out of 10 on a pain eh3 scale. Quality of pain is described as aching, tender, Pain began 5 hours ago Is continuous. Neuro: Level of Consciousness is awake, alert, obeys commands, Oriented to person, place, time, situation. Cardiovascular: Capillary refill < 3 seconds Patient's skin is warm and dry. Respiratory: Airway is patent Respiratory effort is even, unlabored. GI: Abdomen is flat, non-distended, Reports lower abdominal pain, intolerance of fluids, intolerance of food, nausea, vomiting. 21:20 : Reports vaginal bleeding that is bright red, spotty, since this morning. 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 - Social history:: Smoking status: Patient denies any tobacco usage or history of. Screenin:42 Abuse screen: Denies threats or abuse. Denies injuries from another. Nutritional eh3 screening: No deficits noted. Tuberculosis screening: No symptoms or risk factors identified. Fall Risk None identified. Assessment: 21:42 Reassessment: No changes from previously documented assessment. see triage assessment. eh3 GI: Abdomen is flat, non-distended. 06/17 02:36 Reassessment: Patient appears in no apparent distress at this time. No changes from lg3 previously documented assessment. Patient and/or family updated on plan of care and expected duration. Pain level reassessed. Patient is alert, oriented x 3, equal unlabored respirations, skin warm/dry/pink. Patient states symptoms have improved. Vital Signs: 06/16 20:48 BP 117 / 76; Pulse 99; Resp 16; Temp 98.9; Pulse Ox 100% on R/A; Weight 49.9 kg (R); hb Height 5 ft. 4 in. (162.56 cm); Pain 7/10; 21:46 BP 108 / 76; Pulse 97; Resp 18; Pulse Ox 99% on R/A; eh3 22:39 BP 100 / 68; Pulse 88; Resp 20; Pulse Ox 100% on R/A; Pain 9/10; eh3 23:39 BP 104 / 71; Pulse 79; Resp 18; Pulse Ox 100% on R/A; Pain 4/10; ld1 06/17 02:37 BP 104 / 74; Pulse 82; Resp 18 S; Pulse Ox 100% on R/A; lg3 06/16 20:48 Body Mass Index 18.88 (49.90 kg, 162.56 cm) hb ED Course: 06/16 20:39 Patient arrived in ED. ja2 20:49 Triage completed. hb 20:49 Arm band placed on. hb 20:53 Cecilio Billings PA is PHCP. cp 20:53 Zac Rm MD is Attending Physician. cp 21:16 Shea Troy, TELLY is Primary Nurse. ld1 21:19 Urine Microscopic Only Sent. eh3 21:42 Patient has correct armband on for positive identification. Bed in low position. Call eh3 light in reach. Side rails up X2. 21:42 No provider procedures requiring assistance completed. eh3 22:00 Inserted saline lock: 20 gauge in left antecubital area, using aseptic technique. Blood eh3 collected. 22:08 CBC with Diff Sent. eh3 22:08 CMP Sent. eh3 22:08 Lipase Sent. eh3 22:58 Urine Culture Sent. 3 06/17 00:41 CT Abd/Pelvis - PO and IV Contrast In Process Unspecified. EDOR 01:55 Reema Nichols MD is Referral Physician. cp 02:36 IV discontinued, intact, bleeding controlled, No redness/swelling at site. Pressure lg3 dressing applied. Administered Medications: 06/16 22:16 Drug: morphine 2 mg Route: IVP; Infused Over: 4 mins; Site: left antecubital; 3 06/17 00:02 Follow up: Response: No adverse reaction [facility] 06/16 22:16 Drug: NS 0.9% 1000 ml Route: IV; Rate: 1 bolus; Site: left antecubital; [facility] 06/17 00:02 Follow up: Response: No adverse reaction 3 02:36 Follow up: IV Status: Completed infusion; IV Intake: 1000ml [facility] 06/16 22:16 Drug: Zofran (Ondansetron) 4 mg Route: IVP; Site: left antecubital; 3 06/17 00:02 Follow up: Response: No adverse reaction [facility] 06/16 22:40 Drug: Ketorolac 15 mg Route: IVP; Site: left antecubital; 3 06/17 00:02 Follow up: Response: No adverse reaction; Marked relief of symptoms [facility] Medication: 06/16 21:42 VIS not applicable for this client. 3 Intake: 06/17 02:36 IV: 1000ml; Total: 1000ml. lg3 Outcome: 01:56 Discharge ordered by . cp 02:36 Discharged to home ambulatory, with family. lg3 02:36 Condition: stable 02:36 Discharge instructions given to patient, Instructed on discharge instructions, follow up and referral plans. medication usage, Demonstrated understanding of instructions, follow-up care, medications, Prescriptions given X 2. 02:37 Patient left the ED. lg3 Signatures: Dispatcher [employer] EDOR Cecilio Billings PA PA cp Tarsha Rodríguez RN RN Kourtney Lozano RN RN 3 Shea Troy RN RN ld1 Michelle Katz Erin eh3 Corrections: (The following items were deleted from the chart) 06/16 20:50 20:49 PSHx: section; hb hb 22:40 22:33 BP 115 / 76; Pulse 99bpm; Resp 20bpm; Pulse Ox 99% RA; Pain 8/10; eh3 eh3 22:40 22:39 BP 100 / 68; Pulse 88bpm; Resp 20bpm; Pulse Ox 100% RA; eh3 eh3 22:43 21:20 GI: Abdomen is flat, non-distended, Reports lower abdominal pain, intolerance of eh3 fluids, intolerance of food, nausea, vomiting, eh3 22:43 21:41 : No signs and/or symptoms were reported regarding the genitourinary system. eh3eh3 22:43 21:41 Derm: No signs and/or symptoms reported regarding the dermatologic system. eh3 eh3 22:43 21:41 Musculoskeletal: No signs and/or symptoms reported regarding the musculoskeletal eh3 system. eh3
--- NOTE | 2022-06-17 02:05 | EDPHYS ---
Physician Documentation [facility] Name: Katina Lindsay Age: 27 yrs Sex: Female : 1995 Arrival Date: 06/16/2022 Time: 20:39 Bed 16 Private MD: ED Physician Zac Rm HPI: 06/16 21:00 This 27 yrs old Female presents to ER via Ambulatory with complaints of cp Vomiting, Abdominal Pain. 21:00 The patient presents with abdominal pain right lower quadrant. cp 21:00 Onset: The symptoms/episode began/occurred today, about 1700. The symptoms do not cp radiate. 21:00 Associated signs and symptoms: Pertinent positives: nausea, vomiting, Pertinent cp negatives: anorexia, blood in stools, chest pain, diarrhea, dysuria, fever, vaginal discharge, vomiting blood. The symptoms are described as constant. 21:00 Severity of pain: in the emergency department the pain is unchanged despite home cp interventions. Patient reports history of ovarian cyst. 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 - Social history:: Smoking status: Patient denies any tobacco usage or history of. ROS: 21:05 Constitutional: Negative for body aches, chills, fever, poor PO intake. cp 21:05 Eyes: Negative for injury, pain, redness, and discharge. cp 21:05 ENT: Negative for drainage from ear(s), ear pain, sore throat, difficulty swallowing, difficulty handling secretions. 21:05 Cardiovascular: Negative for chest pain, palpitations. 21:05 Respiratory: Negative for cough, shortness of breath, wheezing. 21:05 Abdomen/GI: Positive for abdominal pain, nausea, vomiting, Negative for diarrhea, constipation. 21:05 Back: Negative for radiated pain. 21:05 : Negative for urinary symptoms, vaginal bleeding, vaginal discharge. 21:05 Neuro: Negative for altered mental status, dizziness, headache, weakness. 21:05 All other systems are negative. Exam: 21:10 Constitutional: The patient appears in no acute distress, alert, awake, non-toxic, well cp developed, well nourished, uncomfortable. 21:10 Head/Face: Normocephalic, atraumatic. cp 21:10 Eyes: Periorbital structures: appear normal, Conjunctiva: normal, no exudate, no injection, Sclera: no appreciated abnormality, Lids and lashes: appear normal, bilaterally. 21:10 ENT: External ear(s): are unremarkable, Nose: is normal, Mouth: Lips: moist, Oral mucosa: pink and intact, moist, Posterior pharynx: Airway: no evidence of obstruction, patent. 21:10 Chest/axilla: Inspection: normal. 21:10 Cardiovascular: Rate: normal, Rhythm: regular. 21:10 Respiratory: the patient does not display signs of respiratory distress, Respirations: normal, no use of accessory muscles, no retractions, labored breathing, is not present, Breath sounds: are clear throughout, no decreased breath sounds, no stridor, no wheezing. 21:10 Abdomen/GI: Inspection: abdomen appears normal, Bowel sounds: active, all quadrants, Palpation: soft, in all quadrants, moderate abdominal tenderness, in the right lower quadrant, rebound tenderness, is not appreciated, voluntary guarding, is not appreciated, involuntary guarding, is not appreciated. 21:10 Back: CVA tenderness, is absent. Vital Signs: 20:48 BP 117 / 76; Pulse 99; Resp 16; Temp 98.9; Pulse Ox 100% on R/A; Weight 49.9 kg (R); hb Height 5 ft. 4 in. (162.56 cm); Pain 7/10; 21:46 BP 108 / 76; Pulse 97; Resp 18; Pulse Ox 99% on R/A; eh3 22:39 BP 100 / 68; Pulse 88; Resp 20; Pulse Ox 100% on R/A; Pain 9/10; eh3 23:39 BP 104 / 71; Pulse 79; Resp 18; Pulse Ox 100% on R/A; Pain 4/10; ld1 06/17 02:37 BP 104 / 74; Pulse 82; Resp 18 S; Pulse Ox 100% on R/A; lg3 06/16 20:48 Body Mass Index 18.88 (49.90 kg, 162.56 cm) hb MDM: 06/16 21:00 Patient medically screened. 06/17 01:54 ED course: VSS. Patient reports pain resolved. Will discharge to home to f/u outpatient cp with UG DESIGNER. 01:55 Data reviewed: vital signs, nurses notes, radiologic studies, CT scan. 01:55 Differential diagnosis: appendicitis, Ectopic , Pelvic Inflammatory Disease, cp Pyelonephritis, Ureterolithiasis, urinary tract infection. Counseling: I had a detailed discussion with the patient and/or guardian regarding: the historical points, exam findings, and any diagnostic results supporting the discharge/admit diagnosis, lab results, radiology results, the need for outpatient follow up, for definitive care, an OB/Gyne specialist, to return to the emergency department if symptoms worsen or persist or if there are any questions or concerns that arise at home. Response to treatment: the patient's symptoms have resolved after treatment, the patient's pain is gone. ED course: Review of records show patient with previous visit to this facility on 12-20-2021. Diagnosed with lower abdomen right side dermoid cyst at [address] today shows cyst measuring 9.1 cm. Patient admits to no f/u since previous visit. Will discharge to home to f/u with UG DESIGNER outpatient. 06/16 20:54 Order name: Urine Microscopic Only; Complete Time: 21:43 06/16 23:38 Interpretation: Normal except: URBC 5-10; UBACT 20-50; BYST Few. 06/16 21:15 Order name: Urine Dipstick-Ancillary; Complete Time: 21:43 [facility] 06/16 23:38 Interpretation: Normal except: UKET 1+; UBLD 2+; UPH 8.5. 06/16 21:15 Order name: Urine --Ancillary (enter results); Complete Time: 21:43 mw2 06/16 21:36 Order name: Urine Culture EDDC 06/16 21:44 Order name: CBC with Diff 06/16 23:39 Interpretation: Normal except: WBC 12.0; SEVERINO% 93.3; LYM% 5.3; MN% 1.1; NEUT A 11.2; cp LYMA 0.6. 06/16 21:44 Order name: CMP; Complete Time: 22:38 06/16 23:39 Interpretation: Normal except: AST 10; GLOB 3.7. cp 06/16 20:54 Order name: Urine Dipstick-Ancillary (obtain specimen); Complete Time: 21:15 cp 06/16 21:44 Order name: Lipase; Complete Time: 22:38 cp 06/16 21:44 Order name: CT Abd/Pelvis - PO and IV Contrast cp 06/16 22:50 Order name: Manual Differential EDMS 06/16 20:54 Order name: Urine Test (obtain specimen); Complete Time: 21:15 cp 06/16 21:44 Order name: IV Saline Lock; Complete Time: 21:45 cp 06/16 21:44 Order name: Labs collected and sent; Complete Time: 22:08 cp Administered Medications: 06/16 22:16 Drug: morphine 2 mg Route: IVP; Infused Over: 4 mins; Site: left antecubital; [facility] 06/17 00:02 Follow up: Response: No adverse reaction [facility] 06/16 22:16 Drug: NS 0.9% 1000 ml Route: IV; Rate: 1 bolus; Site: left antecubital; [facility] 06/17 00:02 Follow up: Response: No adverse reaction [facility] 02:36 Follow up: IV Status: Completed infusion; IV Intake: 1000ml [facility] 06/16 22:16 Drug: Zofran (Ondansetron) 4 mg Route: IVP; Site: left antecubital; [facility] 06/17 00:02 Follow up: Response: No adverse reaction [facility] 06/16 22:40 Drug: Ketorolac 15 mg Route: IVP; Site: left antecubital; [facility] 06/17 00:02 Follow up: Response: No adverse reaction; Marked relief of symptoms 3 Disposition: 22:05 Co-signature as Attending Physician, Zac Rm MD. rn Disposition Summary: 06/17/22 01:56 Discharge Ordered Location: Home cp Problem: an ongoing problem cp Symptoms: have improved cp Condition: Stable cp Diagnosis - Other ovarian cysts - dermoid cp Followup: cp - With: Reema Nichols MD - When: 1 - 2 days - Reason: Recheck today's complaints Discharge Instructions: - Discharge Summary Sheet cp - Ovarian Cyst cp Forms: - Medication Reconciliation Form cp - Thank You Letter cp - Antibiotic Education cp - Prescription Opioid Use cp Prescriptions: - Zofran 4 mg Oral Tablet - take 1 tablet by ORAL route every 12 hours As needed; 20 tablet; Refills: 0, cp Product Selection Permitted - Diclofenac Sodium 75 mg Oral Tablet Sustained Release - take 1 tablet by ORAL route 2 times per day; 30 tablet; Refills: 0, Product cp Selection Permitted Signatures: Dispatcher [employer] EDMS Zac Rm MD MD rn Cecilio Billings PA PA cp Baxter, Heather, RN RN hb Hall, Erin 3 Kourtney Lozano RN lg3 Corrections: (The following items were deleted from the chart) 06/16 20:50 20:49 PSHx: section; hb hb
[2022-06-17 06:50] VITALS: TEMP 98.9
[2022-06-17 06:53] VITALS: O2SAT 100
[2022-06-17 07:00] VITALS: BP 104/74
--- NOTE | 2022-06-17 13:18 | RAD REPORT ---
EXAM DESCRIPTION: CT Abdomen and Pelvis With Intravenous Contrast CLINICAL HISTORY: The patient is 27 years old and is Female; RLQ abdominal pain TECHNIQUE: Axial computed tomography images of the abdomen and pelvis with intravenous contrast. S agittal and coronal reformatted images were created and reviewed. This CT exam was performed using one or more of the following dose reduction techniques: automated exposure control, adjustment of t he mA and/or kV according to patient size, and/or use of iterative reconstruction technique. DLP: 810 mGy*cm COMPARISON: CT abdomen and pelvis dated 12/15/2021. FINDINGS: LUNG BASES: Unremarkable. No mass. No consolidation. ABDOMEN: LIVER: Unremarkable. No mass. GALLBLADDER AND BILE DUCTS: Unremarkable. No calcified stones. No ductal dilation. PANCREAS: Unremarkable. No mass. No ductal dilation. SPLEEN: Unremarkable. No splenomegaly. ADRENALS: Unremarkable. No mass. KIDNEYS AND URETERS: Unremarkable. No solid mass. No hydronephrosis. STOMACH AND BOWEL: Enteric contrast throughout the small bowel. No obstruction. No mucosal thickening. PELVIS: APPENDIX: The appendix is seen and is within normal limits. BLADDER: Unremarkable. No mass. REPRODUCTIVE: Fat and soft tissue containing left adnexal lesion measuring up to 9.1 cm in cranioca udal dimension. ABDOMEN and PELVIS: INTRAPERITONEAL SPACE: Unremarkable. No free air. No significant fluid collection. BONES/JOINTS: No acute fracture. No dislocation. SOFT TISSUES: Unremarkable. VASCULATURE: Prominent tortuous pelvic vasculature. No abdominal aortic aneurysm. LYMPH NODES: Unremarkable. No enlarged lymph nodes. TUBES, LINES AND DEVICES: Intrauterine contraceptive device. IMPRESSION: 1. Fat and soft tissue containing left adnexal lesion measuring up to 9.1 cm in cranio caudal dimension, unchanged from prior exam. Findings suggestive of large ovarian dermoid. Recommen d follow-up pelvic MRI with IV contrast. Reference: J Am Lillian Radiol 2013;10:675-681. 2. Prominent tortuous pelvic vasculature. 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 Electronically signed by: Selwyn Leone DO 06/17/2022 1:12 AM CDT Due to temporary technical issues with the PACS/Fluency reporting system, reports are being signed by the in house radiologists without review as a courtesy to insure prompt reporting. The interpreting radiologist is fully responsible for the content of the report.
--- OUTSIDE RECORDS SUMMARY | 2022-06-18 14:56 | XMS REPORT | Continuity of Care Document ---
:1995 Author Organization [facility] t Address [address] [place] [address] Care Team Providers Name Role Phone Laura ESTRADA Primary Care Physician Unavailable Melita SALMERON Attending Clinician Unavailable Laura Holbrook Attending Clinician Payers Payer Name Policy Type Policy Number Effective Date Expiration Date S ource Problems Condition Condition Condition Status Onset Resolution Last Treating Co mments Source Name Details Category Date Date Treatment Clinician Date Ovarian Ovarian Disease Active [facility] cyst cyst 1-24 ity of 00:00: [address] IUD IUD Disease Active [facility] (intrauter (intrauter 1-24 it y of ine ine 00:00: [place] device) in device) in [address] Branch BV BV Disease Active [facility] (bacterial (bacterial 2-26 it y of vaginosis[place] [facility] Pain Pain Disease Active [facility] pelvic pelvic 1-24 ity of 00:00: [place] [address] Medical Branch Encounter Encounter Disease Active 2016-11 Uni vers for for 2-19 [place]y of [place] jessica jessica 00 Medical management management Br anch , , unspecifie unspecifie d type d type Allergies, Adverse Reactions, Alerts Allergy Allergy Status Severity Reaction(s) Onset Inactive Treating Comm ents Source Name Type Date Date Clinician NO KNOWN Drug Active Univers ALLERGIE Class ity of S [facility] Social History Social Habit Start Date Stop Date Quantity Comments Source Exposure to 2022-05-15 2022-05-25 Not sure [facility] SARS-CoV-2 (event) 00:00:00 11:19:00 Medica l Branch Alcohol intake 2022-05-25 2022-05-25 0 /d [facility] 00:00:00 00:00:00 Medical Branch Tobacco use and 2017-02-23 2017-02-23 Never used [facility] exposure 00:00:00 00:00:00 [facility] Sex Assigned At [birth year] [facility] 00:00:00 00:00:00 Medical Branch Smoking Status Start Date Stop Date Source Never smoker [facility] Medications Ordered Filled Start Stop Current Ordering Indication Dosage Frequency Signature Comments Components Source Medication Medication Date Date Medication? Clinician (SIG) Name Name metroNIDAZO Yes [id number] 500mg Take 1 [facility] LE 500 mg 6-27 tablet by ity o f tablet 00:00: mouth 2 [place] 00 (two) Medical times Branch daily. norgestimat Yes [id number] 1{tbl} Take 1 Univers e-ethinyl 2-16 601343 tablet by ity of estradioL 00:00: mouth [place] 0.25-35 00 daily. Medical mg-mcg per Branch tablet metroNIDAZO Yes [id number] 500mg Take 1 [facility] LE 500 mg 8-11 tablet by ity o f tablet 00:00: mouth 2 [place] 00 (two) Medical times Branch daily. metroNIDAZO Yes [id number] 500mg Take 1 [facility] LE 500 mg 2-26 tablet by ity o f tablet 00:00: mouth 2 [place] 00 (two) Medical times Virgie daily. 2016-11 Yes 1{tbl} Take 1 Unive rs vitamin 1-07 tablet by ity of w/FA tablet 00:00: mouth [place] 00 daily. Medical Branch Immunizations Ordered Filled Immunization Date Status Comments Sourc e Immunization Name Name HPV9 2018-04-14 Completed University 00:00:00 [facility] HPV9 2017-11-08 Completed University 00:00:00 [facility] HPV9 2017-10-04 Completed [facility] 00:00:00 [facility] Influ[facility] 2017[facility]09[facility]02 [facility] TDAP 2017-07-13 Completed [facility] 00:00:00 [facility] PPD (TB) 2017-02-23 Completed [facility] 00:00:00 [facility] Procedures This patient has no known procedures. Encounters Start End Encounter Admission Attending Care Care Encounter Source Date/Time Date/Time Type Type Clinicians Facility Department ID 2022-06-24 2022-06-24 [id number] Univers 00:00:00 00:00:00 ROMY [id number] [facility] 2022-06-24 2022-06-24 Outpatient Melita SALMERON [facility] [id number] Univers 00:00:00 00:00:00 [facility] 2022-05-25 2022-05-25 Telephone [facility] [id number] Univers 00:00:00 00:00:00 Zo Sanchez DENTAL ASSISTANT [id number] ity [facility] [id number] [place] as MATERNAL [id number] Med ical & CHILD [address] [place] [address] Results This patient has no known results.
== END 2022-06-17 02:37 | disposition home or self-care (01) ==
LOC: ER 20:35
DX: D27.0 Benign neoplasm of right ovary (principal); R11.2 Nausea with vomiting, unspecified
CPT/HCPCS: 36415; 74177; 80053; 81003; 81015; 81025; 83690; 85025; 87086; 87088; J2270; J2405; J7030; Q9967